=== PATIENT | male | born 1940 | race Caucasian/White ===

== ENCOUNTER 2018-08-09 12:58 | Outpatient (CLI) | payer MEDICARE, BC, SELFPAY ==
[2018-08-09] VITALS (8 sets, daily range): BP systolic 123–152; BP diastolic 72–94; PULSE 69–87; RESP 16–18; TEMP 36.9; O2SAT 98–99
--- NOTE | 2018-08-09 13:06 | DI.RAD.S_ITS ---
PROCEDURE: PAIN L/S TRANSFORAMINAL INJECT INDICATIONS: SPINAL STENOSIS FINDINGS: Fluoroscopic spot filming was performed to verify placement of spinal needles at the L4-L5 level(s), as labeled on the films. Appropriate location(s) of the needle tip(s) was confirmed by injection of iodinated contrast. IMPRESSION: Fluoroscopy for pain management. Dictated by: Laci Tolbert M.D. on 08/09/2018 at 15:54 Approved by: Laci Tolbert M.D. on 08/09/2018 at 15:55
--- NOTE | 2018-08-09 13:56 | P.PCN_ITS ---
Procedures Date/Time Date of procedure: 08/09/18 Time of procedure: 13:54 General Procedure description: PREOP DIAGNOSIS 1. FORMAINAL STENOSIS WITH LE SYMPTOMS, POST OP DIAGNOSIS 1. FORMAINAL STENOSIS WITH LE SYMPTOMS, PROCEDURES 1.FLUOROSCOPICALLY GUIDED CONTRAST CONTROLLED TRANSFORAMINAL EPIDURAL STEROID INJECTION - RIGHT L4/5 TFESI PHYSICIAN: Guru Saunders DO INDICATIONS: Hitesh is referred by VENKATESH Solis for treatment of Foraminal Stenosis with right LE Symptoms FINDINGS Foraminal Nerve Root Compression secondary to disc disease and facet hypertrophy DESCRIPTION OF PROCEDURE Following denial of allergy and review of potential side effects and complications, including, but not necessarily limited to, infection, allergic reaction, local tissue breakdown, stroke, temporary or permanent nerve injury, paralysis, and possible , the patient indicated that the patient understood and agreed to proceed. An informed consent document was signed by the patient, witnessed by a nurse, and placed in the patient's chart. Additionally, other treatment options including medications, modalities, and physical therapy were reviewed with the patient. After review of previous anaesthesic history and IV conscious sedation the patient was deemed safe to proceed with todays procedure with IV conscious sedation as ASA class II designation. Safety time-out was performed to confirm patient ID, procedure to be performed and site of procedure. IV sedation was accomplished with a combination of 3mg was administered by the RN after DO order , titrated to patient comfort during the course of the procedure while the patient remained responsive to all verbal commands In the prone position following sterile prep and drape of the lumbar region, the right L4/5 posterior neuroforamen was identified fluoroscopically. The skin was anesthetized via a 25-gauge 1.5-inch needle with 1% lidocaine solution. At this point, a 25-gauge 3.5-inch spinal needle was atraumatically introduced and advanced under fluoroscopic guidance through the posterior right L4/5 neuroforamen to approximately the anterior aspect of the canal. Depth was confirmed on lateral view. Following negative aspiration, injection of approximately 1.5 cc of Isovue 200 under live fluoroscopy in the AP view confirmed excellent flow along the nerve root, into the epidural space without vascular or intrathecal uptake observed Radiological data, including multiple fluoroscopic views of the lumbosacral spine, reveal a spinal needle at the right L4/5 posterior neuroforamen. Subsequent views show flow of contrast material flowing superiorly and inferiorly along the nerve root confirming epidural flow. Subsequently, a test dose of 1.5 cc of 1% lidocaine solution was administered and patient was observed for two minutes for signs or symptoms of complications , including abdominal pain, shortness of breath, bilateral upper or lower extremity weakness, nausea and vomiting, prior to steroid injection. At this point, a total of 3 cc or 20 mg of dexamethasone and 80mg Depo Medrol was injected without incident. The procedure tolerated the procedure well without signs or symptoms of complications prior to transfer to the recovery area continued monitoring without incident. The patient was then transferred to the recovery area where they were observed for an appropriate time after the injection. The patient reported a VAS score of 7 prior to the procedure and a post-procedure VAS of 0. Total Fluoroscopy Time: 20.9 seconds Total Conscious Sedation Time: 24min POST OP INSTRUCTIONS The patient was provided a Pain Log to continue to record their response to the target-specific procedure prior to follow-up visit with their referring physician. Additionally, specific post-injection care instructions and a contact number to our office were provided if concerns arise regarding possible complications associated with the procedure are suspected. Guru Saunders DO Complications: none
[2018-08-09] MEDS: MIDAZOLAM 5 MG/5 ML VIAL IV (14:01)
[2018-08-09] MEDS: DEXAMETHASONE 10 MG/ML VIAL 20 MG INJ (14:06)
[2018-08-09] MEDS: methylPREDNISolone acetate 80 MG/ML VIAL INJ (14:06)
[2018-08-09] MEDS: IOPAMIDOL 15 ML VIAL 3 ML INJ (14:06)
[2018-08-09] MEDS: BUPIVACAINE 0.25% (PF) VIAL 2 ML INJ (14:06)
--- NOTE | 2018-08-09 14:14 | PC.NURSE ---
ASSISTING PT OFF TABLE AND TRANSPORTING TO POST PROC AREA IN STABLE CONDITION
--- NOTE | 2018-08-09 14:31 | PC.NURSE ---
Received pt from procedure via w/c and his right leg is numb and not cooperating. pt awake and alert. REsumed Care from Shira DODGE.
--- NOTE | 2018-08-09 14:49 | PC.NURSE ---
pt got up and tested leg, he was able to walk without assistance but decided to wait another 10 minutes related to they are going to dinner after leaving here.
== END 2018-08-09 15:35 | disposition home or self-care (01) ==
LOC: RAD 13:05
PROVIDERS: PCP Student in an Organized Health Care Education/Training Program; Visit Provider Physical Medicine & Rehabilitation
DX: M48.061 Spinal stenosis, lumbar region without neurogenic claudication (principal); M51.16 Intervertebral disc disorders with radiculopathy, lumbar region; M47.27 Other spondylosis with radiculopathy, lumbosacral region
CPT/HCPCS: 64483; 99152; J1040; J1100; J2250

== ENCOUNTER → 2018-09-29 17:00 | Outpatient (CLI) | payer MEDICARE, BC, SELFPAY ==
--- NOTE | 2018-09-29 17:05 | DI.MRI.S_ITS ---
PROCEDURE: MR LUMBAR SPINE WO CON INDICATIONS: Low back pain with right leg radicular pain into right knee TECHNIQUE: Noncontrast sagittal T1 spin echo and T2 fast echo, sagittal STIR, axial T1 and T2 fast spin echo through the lumbar spine. In cases with scoliosis, additional coronal T2 fast spin echo may be performed. COMPARISON: [facility] [place], CR, SPINE LUMB 2 OR 3VW, 12/08/2015, 14:10. MR, LUMBAR SPINE W/O CONTRAST, 12/21/2003, 9:13. [facility], MR, L-SPINE WITHOUT CONTRAST, 10/10/2015, 14:15. FINDINGS: Image quality: Excellent. Alignment and Curvature: There is mild levoscoliosis; otherwise normal bony alignment. Bone Marrow: Marrow is of normal overall signal. No acute vertebral body compression fractures. Spinal Cord: Conus medullaris terminates at the L1-L2 level. Visualized cord demonstrates normal signal and size. Paraspinous Soft Tissues: No paravertebral masses. T12-L1: Splf-gj-[id number] loss of disc height and disc desiccation. There is diffuse posterior disc bulge and disc osteophyte complex. The central canal is mildly narrowed. Moderate left and mild right foraminal stenosis. There is no significant change compared to the last exam on 10/10/2015. L1-L2: Preserved disc height. There is mild disc desiccation. No central canal or foraminal stenosis. There is no significant change compared to the last exam on 10/10/2015. L2-L3: Severe loss of disc height and disc desiccation. There is diffuse posterior disc bulge desiccation and disc osteophyte complex. Mild bilateral facet arthropathy and moderate hypertrophy of ligamentum flavum. The central canal is moderately narrowed. Severe right mild left foraminal stenosis. Increased central canal and foraminal stenoses compared to the last exam on 10/10/2015. L3-L4: Mild loss of disc height and disc desiccation. There is diffuse posterior disc bulge desiccation and disc osteophyte complex. Severe left and moderate right bilateral facet arthropathy. Moderate hypertrophy of ligamentum flavum. The central canal is severely narrowed. [id number] bilateral foraminal stenosis. Increased central canal stenosis compared to the last exam on 10/10/2015. L4-L5: Mild loss of disc height and disc desiccation. There is diffuse posterior disc bulge desiccation and disc osteophyte complex. Severe bilateral facet arthropathy. Moderate hypertrophy of ligamentum flavum. The central canal is severely narrowed. Mild-to moderate bilateral foraminal stenosis. Increased central canal and foraminal stenoses compared to the last exam on 10/10/2015. L5-S1: Mild loss of disc height and disc desiccation. There is diffuse posterior disc bulge desiccation and disc osteophyte complex. Moderate left and mild right facet arthropathy. Moderate hypertrophy of ligamentum flavum. The central canal is patent. Mild-to moderate bilateral foraminal stenosis, increased compared to the last exam on 10/10/2015. IMPRESSION: 1. Progressive worsening of multilevel degenerative disc disease and facet arthropathy in lumbar spine. 2. Severe central canal stenosis at L3-L4 and L4-L5, and moderate central canal stenosis at L2-L3. 3. Multilevel foraminal stenosis as described. Dictated by: Laci Tolbert M.D. on 10/02/2018 at 10:52 Approved by: Laci Tolbert M.D. on 10/02/2018 at 11:42
== END ==
PROVIDERS: PCP Student in an Organized Health Care Education/Training Program; Visit Provider Physical Medicine & Rehabilitation
DX: M54.5 Low back pain (principal); M51.16 Intervertebral disc disorders with radiculopathy, lumbar region; M51.17 Intervertebral disc disorders with radiculopathy, lumbosacral region; M47.26 Other spondylosis with radiculopathy, lumbar region; M47.27 Other spondylosis with radiculopathy, lumbosacral region; M48.061 Spinal stenosis, lumbar region without neurogenic claudication; M48.07 Spinal stenosis, lumbosacral region; M25.561 Pain in right knee
CPT/HCPCS: 72148

== ENCOUNTER → 2018-10-13 10:30 | Outpatient (CLI) | payer MEDICARE, BC, SELFPAY ==
--- NOTE | 2018-10-13 | DI.US.S_ITS ---
PROCEDURE: US PERIPHERAL VENOUS LOWER EXT LT INDICATIONS: PAIN IN LEFT LOWER LEG TECHNIQUE: Real-time imaging, as well as color and pulse Doppler interrogation, were performed of the lower extremity deep veins from the inguinal ligament to the popliteal fossa. COMPARISON: [facility], , US VENOUS LEG DPLX UNI LT, 03/21/2016, 20:14. [facility], , PVE UNILATERAL LEFT, 05/18/2016, 14:19. FINDINGS: There are nonocclusive filling defects in common, superficial and profunda femoral veins with mural irregularity, are consistent with chronic DVT. The opportunity is patent. IMPRESSION: Chronic DVT involving the common, superficial and profunda femoral veins. Dictated by: Laci Tolbert M.D. on 10/13/2018 at 14:29 Approved by: Laci Tolbert M.D. on 10/13/2018 at 14:31
== END ==
PROVIDERS: PCP Student in an Organized Health Care Education/Training Program; Visit Provider Student in an Organized Health Care Education/Training Program
DX: I82.512 Chronic embolism and thrombosis of left femoral vein (principal); M79.662 Pain in left lower leg
CPT/HCPCS: 93970; 93971